=== PATIENT | male | born 1975 | race Caucasian/White ===

== ENCOUNTER 2016-12-27 21:41 | Emergency (ER) | payer OTHER ==
[2016-12-28 00:52] VITALS: BP 127/80
== END 2016-12-28 00:53 | disposition home or self-care (01) ==
LOC: ED 21:41
DX: L03.012 Cellulitis of left finger (principal)
CPT/HCPCS: 90715; J0696; J2001

== ENCOUNTER 2017-12-14 03:03 | Emergency (ER) | payer OTHER ==
[~2017-12-14] VITALS: Ht 175.3 cm; Wt 79.4 kg
[2017-12-14 03:17] VITALS: Ht 175.3 cm; Wt 79.4 kg
[2017-12-14 07:53] VITALS: BP 138/81
== END 2017-12-14 07:53 | disposition home or self-care (01) ==
LOC: ED 03:03
DX: N49.2 Inflammatory disorders of scrotum (principal); I10 Essential (primary) hypertension
CPT/HCPCS: Q0092

== ENCOUNTER 2018-03-27 15:13 | Emergency (ER) | payer SELFPAY ==
[~2018-03-27] VITALS: Ht 175.3 cm; Wt 84.4 kg
[2018-03-27 15:19] VITALS: BP 132/76; Ht 175.3 cm; Wt 84.4 kg
== END 2018-03-27 15:37 | disposition home or self-care (01) ==
LOC: ED 15:13
DX: R20.2 Paresthesia of skin (principal); I10 Essential (primary) hypertension